=== PATIENT | female | born 1965 | race Caucasian/White ===

== ENCOUNTER 2019-07-28 16:15 | Outpatient (CLI) | payer MEDICARE, SELFPAY ==
--- NOTE | ~2019-07-28 | US_ITS ---
EXAMINATION: US pelvic complete w TV DATE: 07/28/2019 17:25 INDICATION: Postmenopausal bleeding. TECHNIQUE: Multiple transabdominal and transvaginal sonographic images of the pelvis were obtained. COMPARISON: None. FINDINGS: TRANSABDOMINAL ULTRASOUND: The uterus measures 8.2 x 4.3 x 3.1 cm. There is no free fluid in the pelvis. TRANSVAGINAL ULTRASOUND: The endometrial complex is not well-visualized. There is a 2.6 x 2.0 x 3.4 cm hyperechoic mass in the uterus asymmetric to the right. The ureters are not visualized. IMPRESSION: 1. Mass in the uterus in the expected area of the right side of the endometrial complex. The differen tial diagnosis includes endometrial hyperplasia, polyp, and carcinoma. Biopsy is recommended. Reviewed, dictated and finalized at location E. IMPRESSION: 1. Mass in the uterus in the expected area of the right side of the endometrial complex. The differential diagnosis includes endometrial hyperplasia, polyp, a nd carcinoma. Biopsy is recommended.
== END 2019-07-28 16:16 | disposition home or self-care (01) ==
LOC: ANHIMG 16:22
PROVIDERS: PCP Family Medicine; Visit Provider Family Medicine
DX: N95.0 Postmenopausal bleeding (principal); N85.9 Noninflammatory disorder of uterus, unspecified
CPT/HCPCS: 76830; 76856

== ENCOUNTER 2019-10-15 23:34 | Emergency (ER) | payer MEDICARE, SELFPAY ==
[2019-10-15 23:37] VITALS: BP 133/91; PULSE 109; RESP 22; TEMP 36.8; O2SAT 98
[2019-10-15 23:50] VITALS: BP 137/78; PULSE 98; RESP 17; TEMP 38; O2SAT 97
--- NOTE | 2019-10-16 00:32 | ED.FEVER ---
HPI - Fever General Chief Complaint: Fever Stated Complaint: fever Time Seen by Provider: 10/15/19 23:37 History of Present Illness HPI Narrative: Not feeling well. checked her tempertaure and she had a fever. She had only vague symptoms of abdminal discomfort without pain, loss of appetite, fatigue, and loss of normal taste. She came here because she is concerned about COVID-19. She reports that did recently go [place]. Unsure if she may have been exposed to COVID-19. No cough, SOB Related Data Allergies Allergy/AdvReac Type Severity Reaction Status Date / Time Sulfa (Sulfonamide Allergy Unknown Verified 12/01/16 14:19 Antibiotics) No Known Allergies Allergy Unverified 09/11/16 08:48 Review of Systems Review of Systems: All systems reviewed & are unremarkable except as noted in HPI and below PMFSH Past Medical History Medical History HTN (hypertension) Scleroderma Family History Family History Mother Family history of cardiac disorder Other Asthma Family history of arthritis Family history of kidney disease Family history of thyroid disease Social History Social History Smoking status: Never smoker Smoking end date: 03/12/04 Alcohol intake: never Gender identity (if verbalized by the patient): Female Exam Const: General: no acute distress and alert Nutritional Appearance: obese Orientation/consciousness: patient oriented x3 HENMT: Head: normal to inspection Resp: Effort & Inspection: normal respiratory effort Auscultation: clear to auscultation bilaterally Cardio: Rate: regular rate Rhythm: regular rhythm GI: GI Palp: Yes Soft to palpation and No Tenderness to palpation present (GI) Skin: General skin exam: normal color Rashes: no rashes Neuro: General: patient oriented x3, moves all extremities, no focal motor deficits and CN's II-XI intact bilaterally Speech: normal speech Extrem: General: no edema Course Vital Signs Vital signs: Vital Signs Temperature 36.8 C 10/15/19 23:37 Pulse Rate 109 H 10/15/19 23:37 Respiratory Rate 22 H 10/15/19 23:37 Blood Pressure 133/91 H 10/15/19 23:37 Pulse Oximetry 98 10/15/19 23:37 Temperature 38.0 C H 10/15/19 23:50 Pulse Rate 98 10/15/19 23:50 Respiratory Rate 17 10/15/19 23:50 Blood Pressure 137/78 10/15/19 23:50 Pulse Oximetry 97 10/15/19 23:50 MDM - Fever Differential Diagnosis Differential diagnosis: Likely gastroenteritis and other (COVID-19, URI) Lab Data Labs: Lab Results 10/16/19 Range/Units 00:42 SARS-CoV-2 RNA (RT-PCR) Pending Urine Characteristics Cloudy Discharge Plan Discharge Clinical Impression: Fever Qualifiers: Encounter type: initial encounter Patient Disposition: Home, Self-Care Condition: Stable Instructions: Fever in Adults (ED) Follow-up/Referrals: Galileo,Francisca Ken MD [Primary Care Provider] - Discharge Date/Time: 10/16/19 01:15
[2019-10-16] MEDS: ONDANSETRON HCL ODT 4 MG TABLET PO (00:41)
[2019-10-16 14:05] LABS: SARS-CoV-2 RNA PCR Negative
== END 2019-10-16 01:15 | disposition home or self-care (01) ==
PROVIDERS: Emergency Provider Emergency Medicine; PCP Family Medicine
DX: R50.9 Fever, unspecified (principal); I10 Essential (primary) hypertension; M34.9 Systemic sclerosis, unspecified; Z20.828 Contact with and (suspected) exposure to other viral communicable diseases
CPT/HCPCS: 87635; 99283; A9270; C9803; U0003

== ENCOUNTER 2021-12-30 14:28 | Outpatient (CLI) | payer MEDICARE, SELFPAY ==
--- NOTE | ~2021-12-30 | MM_ITS ---
EXAMINATION: MM screening [facility] BI w cheo HISTORY: Screening TECHNIQUE: Craniocaudal and mediolateral oblique 3-D tomosynthesis images were obtained and synthetic 2-D images were generated. CAD analysis was submitted and interpreted. COMPARISON: 06/21/2006 BREAST PARENCHYMAL COMPOSITION: Breast composed of scattered areas of fibroglandular density FINDINGS: There is a focal asymmetry in the upper outer quadrant of the right breast. There is no giulia mographic evidence for malignancy in the left breast. IMPRESSION: 1. Focal right breast asymmetry upper outer quadrant. 2. Additional mammographic views and possible breast ultrasound are recommended. BI-RADS Category 0: Incomplete: Needs additional imaging evaluation. Reviewed, dictated and finalized at location A. IMPRESSION: 1. Focal right breast asymmetry upper outer quadrant. 2. Additional mammographic views and possible breast ultrasound are recommended . BI-RADS Category 0: Incomplete: Needs additional imaging evaluation.
== END 2021-12-30 14:29 | disposition home or self-care (01) ==
LOC: ANHIMG 14:30
PROVIDERS: PCP Family Medicine; Visit Provider Family Medicine
DX: Z12.31 Encounter for screening mammogram for malignant neoplasm of breast (principal); R92.8 Other abnormal and inconclusive findings on diagnostic imaging of breast
CPT/HCPCS: 77063; 77067

== ENCOUNTER 2022-04-10 13:28 | Outpatient (CLI) | payer MEDICARE, SELFPAY ==
--- NOTE | ~2022-04-10 | MMUS_ITS ---
EXAMINATION: MM diagnostic giulia RT w cheo, US breast RT limited HISTORY: Follow-up right breast asymmetry TECHNIQUE: Additional 3-D tomosynthesis images of the right breast were performed and synthetic 2-D i mages were generated. CAD analysis was submitted and interpreted. High resolution Limited right breas t ultrasound was performed. COMPARISON: 12/30/2021 and 06/21/2006 BREAST PARENCHYMAL COMPOSITION: Breast composed of scattered areas of fibroglandular density FINDINGS: MAMMOGRAPHIC FINDINGS: The focal area of asymmetry in the outer aspect of the right breast is less apparent with spot compre ssion and mediolateral views. ULTRASOUND: Limited right breast ultrasound: Normal heterogeneous echotexture without focal solid or cystic mass. IMPRESSION: 1. Probable benign focal asymmetry in the outer aspect of the right breast. No sonographic correlate. 2. Recommend 6 month follow-up diagnostic right mammogram BI-RADS category 3, probably benign findings. Reviewed, dictated and finalized at location A. T CLEANER IMPRESSION: 1. Probable benign focal asymmetry in the outer aspect of the right breast. No sonographic correlate. 2. Recommend 6 month follow-up diagnostic right mammogram BI-RADS category 3, probably benign findings.
== END 2022-04-10 13:29 | disposition home or self-care (01) ==
LOC: ANHIMG 13:29
PROVIDERS: PCP Family Medicine; Visit Provider Family Medicine
DX: R92.8 Other abnormal and inconclusive findings on diagnostic imaging of breast (principal)
CPT/HCPCS: 76642; 77061; 77065; G0279

== ENCOUNTER 2025-01-09 14:07 | Outpatient (CLI) | payer MEDICARE, SELFPAY ==
--- NOTE | ~2025-01-09 | US_ITS ---
Clinical history:Nontoxic single thyroid nodule EXAM:Ultrasound thyroid TECHNIQUE:Multiple static grayscale images and color Doppler images were obtained of the thyroid gland. Comparisons:04/18/2017 FINDINGS: Right thyroid lobe measures 2.2 x 5.6 x 2.2 cm and is heterogeneous. Left thyroid lobe measures 5.0 x 2.0 x 1.6 cm and is heterogeneous. Isthmus measures 0.3 cm and is heterogeneous. There is a 1.4 x 1.6 x 1.6 cm hypoechoic solid nodule in the right thyroid lobe with a few small echogenic foci possibly calcifications. TR 5. There is a 0.4 x 0.4 x 0.5 cm hyperechoic solid nodule in the right thyroid lobe. TR 3. There is a 0.3 x 0.3 x 0.5 cm hypoechoic solid nodule in the left thyroid lobe. TR 4. IMPRESSION: 1. There is a 1.6 cm right thyroid nodule. TR 5. A fine-needle aspiration is recommended. 2. There are less than 0.5 cm thyroid nodules. A follow-up thyroid ultrasound in 6 months is recommended. 3. Thyroid gland is enlarged and heterogeneous. Consider a thyroid scan to assess for a cold nodule to assess the need for additional fine-needle aspirations. Reviewed, dictated and finalized at location Q. IMPRESSION: 1. There is a 1.6 cm right thyroid nodule. TR 5. A fine-needle aspiration is re commended. 2. There are less than 0.5 cm thyroid nodules. A follow-up thyroid ultrasound i n 6 months is recommended. 3. Thyroid gland is enlarged and heterogeneous. Consider a thyroid scan to asse ss for a cold nodule to assess the need for additional fine-needle aspirations.
== END 2025-01-09 14:08 | disposition home or self-care (01) ==
LOC: MICIMG 14:08
PROVIDERS: PCP Family Medicine; Visit Provider Family Medicine
DX: E04.2 Nontoxic multinodular goiter (principal)
CPT/HCPCS: 76536